=== PATIENT | male | born 1965 | race Caucasian/White ===

== ENCOUNTER 2018-06-14 08:28 | Emergency (ER) | payer OTHER ==
[~2018-06-14] VITALS: Ht 180.3 cm; Wt 87.5 kg
[~2018-06-14 08:28] MED LIST: ALLO100 PO; DOC250 PO; FLUT.05NI; HYDACE5 PO; INDO50 PO; Naprosyn500 MG PO; OXYACE5T PO; Prednisone50 MG PO; RXHYDACE PO; SULTRIDS PO
[2018-06-14] MEDS ORDERED: OXYC5 (08:41)
[2018-06-14] MEDS ORDERED: ACET120S PR (08:43)
[2018-06-14] MEDS ORDERED: LORA1 PO (08:44)
[2018-06-14] MEDS ORDERED: PERIDEX15 ML (08:45)
[2018-06-14] MEDS ORDERED: IBUP600 PO (08:45)
[2018-06-14] MEDS ORDERED: Zofran Odt4 MG PO (10:19)
[2018-06-14] MEDS ORDERED: MORP20L PO (10:19)
== END 2018-06-14 11:15 | disposition home or self-care (01) ==
LOC: ER 08:28
DX: S02.609A Fracture of mandible, unspecified, initial encounter for closed fracture (principal); S62.101A Fracture of unspecified carpal bone, right wrist, initial encounter for closed fracture; S62.102A Fracture of unspecified carpal bone, left wrist, initial encounter for closed fracture; X58.XXXA Exposure to other specified factors, initial encounter; Z79.891 Long term (current) use of opiate analgesic; Z79.899 Other long term (current) drug therapy
CPT/HCPCS: 99284

== ENCOUNTER 2021-08-04 12:17 | Emergency (ER) | payer OTHER ==
[~2021-08-04] VITALS: Ht 180.3 cm; Wt 95.2 kg
[~2021-08-04 12:17] MED LIST changes: +ACET120S PR; +IBUP600 PO; +LORA1 PO; +MORP20L PO; +OXYC5; +PERIDEX15 ML; +Zofran Odt4 MG PO
[2021-08-04] MEDS ORDERED: IBUP600 PO (14:17)
== END 2021-08-04 14:33 | disposition home or self-care (01) ==
LOC: ER 12:17
DX: S60.410A Abrasion of right index finger, initial encounter (principal); M10.9 Gout, unspecified; Z79.899 Other long term (current) drug therapy; X58.XXXA Exposure to other specified factors, initial encounter
CPT/HCPCS: 73130; 99283-25

== ENCOUNTER 2024-10-07 14:56 | Emergency (ER) | payer OTHER ==
[~2024-10-07] VITALS: Ht 180.3 cm; Wt 108.9 kg
[2024-10-07 15:05] VITALS: BP 151/64
[2024-10-07] MEDS ORDERED: Colchicine 0.6 MG TAB PO ONE (15:10)
[2024-10-07] MEDS ORDERED: COLCHICINE0.6 MG PO (15:10)
== END 2024-10-07 15:29 | disposition home or self-care (01) ==
LOC: ER 14:56
DX: M10.9 Gout, unspecified (principal); Z79.899 Other long term (current) drug therapy; Z59.89 Other problems related to housing and economic circumstances
CPT/HCPCS: 99283; A9270

== ENCOUNTER 2025-06-03 10:34 | Day surgery (SDC) | payer OTHER ==
[~2025-06-03] VITALS: Ht 180.3 cm; Wt 85.7 kg
[~2025-06-03 10:34] MED LIST changes: +COLCHICINE0.6 MG PO
[2025-06-03] MEDS ORDERED: Midazolam HCL 1 MG/ML 5MLVIAL ONE (11:36)
[2025-06-03 12:04] VITALS: BP 144/92
== END 2025-06-03 12:25 | disposition home or self-care (01) ==
LOC: ORSCSDS 10:34
PROVIDERS: Internal Medicine Gastroenterology
PROC: 0DBE8ZX Excision of Large Intestine, Via Natural or Artificial Opening Endoscopic, Diagnostic (ICD-10-PCS; principal; 2025-06-03 12:30)
DX: R19.7 Diarrhea, unspecified (principal); K57.30 Diverticulosis of large intestine without perforation or abscess without bleeding
CPT/HCPCS: 88305; J2250; J2704; J7120